=== PATIENT | female | born 1955 | race Caucasian/White ===

== ENCOUNTER 2018-09-05 09:51 | Day surgery (SDC) | payer OTHER ==
[~2018-09-05] VITALS: Ht 160 cm; Wt 69.8 kg
--- NOTE | 2018-09-05 11:02 | NUR ---
PT ADMITTED TO [facility]. AGREES WITH PLANNED PROCEDURE. MEDS, ALLERGIES AND HX REVIEWED. LUNG SOUNDS CLEAR. TOLERATED BOWEL PREP, STATES LAST BM CLEAR.
--- NOTE | 2018-09-05 11:51 | NUR ---
09/05/18 1151 Genoveva Dickey PATIENT DETERMINED TO BE ASA APPROPRIATE FOR PROPOFOL SEDATION PRIOR TO START OF PROCEDURE BY DR. VALENTINO. 3-LEAD EKG REVIEWED WITH PHYSICIAN PRIOR TO START OF PROCEDURE. PATIENT CONFIRMS NPO STATUS AND AGREES WITH SCHEDULED PROCEDURE. History, Chart, Medications and Allergies reviewed before start of procedure. MONITOR INTACT WITH CONTINUOUS PULSE OXIMETRY AND INTERMITTENT BP. O2 VIA N/C INTACT THROUGHOUT SEDATION/PROCEDURE, 3L NC.
--- NOTE | 2018-09-05 12:59 | NUR ---
Patient up to Ambulate independently. Gait steady. Discharge instructions reviewed with patient. Patient verbalizes understanding. Copy given to patient to take home. Patient States Post-Procedure ride home has been arranged. Discharged via wheelchair to private car for ride home. Friend, Lucy, is providing ride home today.
== END 2018-09-05 22:41 | disposition home or self-care (01) ==
LOC: ORSCMMR 09:51 → ORD 11:00 → ORSCMMR 11:00
PROVIDERS: Internal Medicine Gastroenterology
PROC: 0DBK8ZX Excision of Ascending Colon, Via Natural or Artificial Opening Endoscopic, Diagnostic (ICD-10-PCS; principal; 2018-09-05 11:00)
PROC: 0DBH8ZX Excision of Cecum, Via Natural or Artificial Opening Endoscopic, Diagnostic (ICD-10-PCS; principal; 2018-09-05 11:00)
PROC: 0DBN8ZX Excision of Sigmoid Colon, Via Natural or Artificial Opening Endoscopic, Diagnostic (ICD-10-PCS; principal; 2018-09-05 11:00)
DX: Z12.11 Encounter for screening for malignant neoplasm of colon (principal); D12.0 Benign neoplasm of cecum; D12.2 Benign neoplasm of ascending colon; D12.5 Benign neoplasm of sigmoid colon; K57.30 Diverticulosis of large intestine without perforation or abscess without bleeding
CPT/HCPCS: 88305; J7120

== ENCOUNTER → 2018-09-06 | Outpatient (CLI) | payer OTHER ==
[2018-09-08 16:09] LABS: HPV 16 Negative (Negative); HPV 18 Negative (Negative); HPV OTHER HR TYPES Positive (Negative)
== END | disposition home or self-care (01) ==
LOC: LAB SHORT 18:24 → LAB 18:24
PROVIDERS: Nurse Practitioner Family
DX: Z11.51 Encounter for screening for human papillomavirus (HPV) (principal); Z12.4 Encounter for screening for malignant neoplasm of cervix
CPT/HCPCS: 87624; 87625; G0123

== ENCOUNTER → 2018-09-26 | Outpatient (CLI) | payer OTHER | END | disposition home or self-care (01) | LOC: PLD 12:30 → LAB SHORT 12:30 | DX: R87.810 Cervical high risk human papillomavirus (HPV) DNA test positive (principal) | CPT/HCPCS: 88305 ==

== ENCOUNTER 2020-06-12 06:07 | Day surgery (SDC) | payer OTHER ==
[~2020-06-12] VITALS: Ht 160 cm; Wt 69.6 kg
[~2020-06-12 06:07] MED LIST: MULTIVITAMINS1 EAC3 PO
== END 2020-06-12 11:55 | disposition home or self-care (01) ==
LOC: ORSCSDS 06:07
PROVIDERS: Orthopaedic Surgery
PROC: 0RQS0ZZ Repair Right Carpometacarpal Joint, Open Approach (ICD-10-PCS; principal; 2020-06-12 07:30)
PROC: 0LX70ZZ Transfer Right Hand Tendon, Open Approach (ICD-10-PCS; principal; 2020-06-12 07:30)
DX: M18.11 Unilateral primary osteoarthritis of first carpometacarpal joint, right hand (principal)
CPT/HCPCS: C1713; J0171; J0690; J2250; J2405; J2704; J2765; J3010; J7120

== ENCOUNTER → 2024-05-15 | Outpatient (CLI) | payer MEDICARE, OTHER | END | disposition home or self-care (01) | LOC: LAB 14:14 → LAB SHORT 14:14 | DX: C02.2 Malignant neoplasm of ventral surface of tongue (principal) | CPT/HCPCS: 88173 ==

== ENCOUNTER 2024-06-14 06:12 | Day surgery (SDC) | payer MEDICARE ==
[~2024-06-14] VITALS: Ht 152.4 cm; Wt 59.8 kg
[2024-06-14] MEDS ORDERED: Clindamycin 900mg in D5W 50ML 50 ML IV ONE (06:24)
[2024-06-14] MEDS ORDERED: Vitamin B-12100 MCG PO (06:36)
[2024-06-14] MEDS ORDERED: TOCO1000 (06:37)
[2024-06-14] MEDS ORDERED: Vitamin C100 M1 (06:37)
[2024-06-14] MEDS ORDERED: MERIBIN5 MG (06:39)
[2024-06-14] MEDS ORDERED: ZINC15 (06:39)
[2024-06-14] MEDS ORDERED: VITAMIN D (06:39)
[2024-06-14] MEDS ORDERED: VITAMIN K (06:39)
[2024-06-14] MEDS ORDERED: Lidocaine 2%-Epineph 1:200000 20 ML SDV ONE (07:00)
[2024-06-14] MEDS ORDERED: Dexamethasone Sod Phos 10 MG/ML 1ML VIAL ONE (07:01)
[2024-06-14] MEDS ORDERED: Ondansetron HCl 2 MG / ML 2ML Vial ONE ×2 (07:01→08:19)
[2024-06-14] MEDS ORDERED: Glycopyrrolate 0.2 MG/ML 5ML VIAL ONE (07:01)
[2024-06-14] MEDS ORDERED: propofoL 20 ML IV ONE (07:01)
[2024-06-14] MEDS ORDERED: Lactated Ringer's 1,000 ML IV ONE ×3 (07:01→09:17)
--- NOTE | 2024-06-14 07:29 | NUR ---
06/14/24 0729 [facility] 0725: DR RANDOLPH NOTIFIED THAT WHEN RN LISTENED TO HEART A SKIPPED BEAT WAS HEARD SO 3 MARIE EKG COMPLETED AND SHOWN TO DR RANDOLPH. OK TO PROCEED PER DR RANDOLPH.
[2024-06-14] MEDS ORDERED: Sugammadex Sodium 200 MG/2ML SDV (100 MG/ML) ONE (08:03)
[2024-06-14 08:41] VITALS: BP 130/91
[2024-06-14] MEDS ORDERED: Midazolam HCl 1MG / ML 2ML Vial ONE (09:05)
[2024-06-14] MEDS ORDERED: FentaNYL Citrate 50 MCG/ML 2 ML Injection ONE (10:16)
== END 2024-06-14 08:54 | disposition home or self-care (01) ==
LOC: ORSCSDS 06:12
PROVIDERS: Otolaryngology
PROC: 0CB7XZZ Excision of Tongue, External Approach (ICD-10-PCS; principal; 2024-06-14 07:30)
DX: C02.2 Malignant neoplasm of ventral surface of tongue (principal); B37.0 Candidal stomatitis
CPT/HCPCS: 88305; 88312; J1100; J2250; J2405; J2704; J3010; J7120